=== PATIENT | female | born 1945 | race Caucasian/White ===

== ENCOUNTER 2021-09-12 16:18 | Observation (INO) | payer MEDICARE ==
[~2021-09-12] VITALS: Ht 160 cm; Wt 63.6 kg
[2021-09-12] MEDS ORDERED: HYDR-3911 PO (16:29)
[2021-09-12] MEDS ORDERED: AMLO10TA PO (16:29)
[2021-09-12] MEDS ORDERED: NORCO, ANEXSIA 5/325MG TABLET (HYDROcodone/ACETAMINOPHEN) PO ONE (18:05)
[2021-09-12] MEDS: HEPARIN SOD (PORCINE) 5000UNITS/ML 1ML VIAL/SYRINGE SC SCH (22:00)
[2021-09-12] MEDS ORDERED: LABE20TAB PO (22:15)
[2021-09-12] MEDS ORDERED: ROSU5TAB5 PO (22:15)
[2021-09-12] MEDS ORDERED: HOME MED LIST COMPLETE! XX SCH (22:20)
[2021-09-12 22:22] LABS: BASO % 0.3 % (0.0-1.0); EOS # 0.2 10^3/uL (0.0-0.5); EOS % 1.9 % (0.0-3.0); HEMATOCRIT 32.8 % (36.0-47.0); HEMOGLOBIN 10.6 g/dl (12.0-15.5); LYMPH # 1.1 10^3/uL (1.5-5.0); LYMPH % 13.6 % (24.0-44.0); MEAN CORPUSCULAR HGB CONC 32.3 g/dl (32.0-36.5); MEAN CORPUSCULAR VOLUME 89.9 fl (80.0-96.0); MONO # 0.5 10^3/uL (0.0-0.8); MONO % 6.8 % (2.0-8.0); PLATELET COUNT, AUTOMATED 117 10^3/uL (150-450); RED BLOOD COUNT 3.65 10^6/uL (4.00-5.40); WHITE BLOOD COUNT 7.8 10^3/uL (4.0-10.0)
[2021-09-12] MEDS ORDERED: MOM 30ML SUSPENSION UDC PO PRN (22:40)
[2021-09-12] MEDS ORDERED: MAALOX 30 ML SUSP *UDC PO PRN (22:40)
[2021-09-12] MEDS ORDERED: ACETAMINOPHEN TAB 650MG DOSE (2X325MG) PO PRN (22:40)
[2021-09-12] MEDS ORDERED: PILL CUTTER 1 EACH XX PRN (22:50)
[2021-09-12 22:58] LABS: CALCIUM LEVEL 9.6 MG/DL (8.8-10.2); CREATININE FOR GFR 1.74 MG/DL (0.55-1.30); GLOMERULAR FILTRATION RATE 30.4 (>39); POTASSIUM SERUM 4.4 MEQ/L (3.5-5.1)
[2021-09-12] MEDS: ROSUVASTATIN 10 MG TAB (CRESTOR) PO SCH (23:00)
[2021-09-12] MEDS: LABETALOL 200 MG TAB PO SCH (23:00)
[2021-09-12] MEDS: **hydrALAZINE HCL** 25 MG TAB PO SCH (23:00)
[2021-09-13] MEDS: NORCO, ANEXSIA 5/325MG TABLET (HYDROcodone/ACETAMINOPHEN) PO PRN ×5 (00:16→22:34)
[2021-09-13] MEDS: HEPARIN SOD (PORCINE) 5000UNITS/ML 1ML VIAL/SYRINGE SC SCH ×4 (05:48→21:50)
[2021-09-13 06:54] LABS: BASO % 0.3 % (0.0-1.0); EOS # 0.2 10^3/uL (0.0-0.5); EOS % 2.6 % (0.0-3.0); HEMATOCRIT 32.8 % (36.0-47.0); HEMOGLOBIN 10.5 g/dl (12.0-15.5); LYMPH # 0.9 10^3/uL (1.5-5.0); LYMPH % 15.7 % (24.0-44.0); MEAN CORPUSCULAR HEMOGLOBIN 29.2 pg (27.0-33.0); MEAN CORPUSCULAR VOLUME 91.4 fl (80.0-96.0); MONO # 0.5 10^3/uL (0.0-0.8); MONO % 9.4 % (2.0-8.0); NEUTROPHILS # 4.1 10^3/uL (1.5-8.5); NEUTROPHILS % 71.7 % (36.0-66.0); PLATELET COUNT, AUTOMATED 114 10^3/uL (150-450); RED BLOOD COUNT 3.59 10^6/uL (4.00-5.40); WHITE BLOOD COUNT 5.7 10^3/uL (4.0-10.0)
[2021-09-13 07:25] LABS: ALBUMIN 3.7 GM/DL (3.2-5.2); BILIRUBIN,TOTAL 0.5 MG/DL (0.2-1.0); CALCIUM LEVEL 9.3 MG/DL (8.8-10.2); CREATININE FOR GFR 1.56 MG/DL (0.55-1.30); GLOMERULAR FILTRATION RATE 34.5 (>39); MAGNESIUM LEVEL 2.1 MG/DL (1.8-2.4); POTASSIUM SERUM 4.1 MEQ/L (3.5-5.1); TOTAL PROTEIN 5.9 GM/DL (6.4-8.2)
[2021-09-13] MEDS: LABETALOL 200 MG TAB PO SCH ×2 (08:03→21:49)
[2021-09-13] MEDS: **hydrALAZINE HCL** 25 MG TAB PO SCH ×3 (08:04→21:49)
[2021-09-13 20:57] VITALS: BP 138/63
[2021-09-13] MEDS: ROSUVASTATIN 10 MG TAB (CRESTOR) PO SCH (21:50)
[2021-09-14] MEDS: NORCO, ANEXSIA 5/325MG TABLET (HYDROcodone/ACETAMINOPHEN) PO PRN ×2 (04:49→11:01)
[2021-09-14 04:50] VITALS: BP 133/62
[2021-09-14] MEDS: HEPARIN SOD (PORCINE) 5000UNITS/ML 1ML VIAL/SYRINGE SC SCH (07:02)
[2021-09-14 07:50] VITALS: BP 133/62
[2021-09-14] MEDS: LABETALOL 200 MG TAB PO SCH (07:50)
[2021-09-14] MEDS: **hydrALAZINE HCL** 25 MG TAB PO SCH (07:52)
[2021-09-14] MEDS ORDERED: HYDR-3715 PO (11:58)
== END 2021-09-14 13:40 | disposition home or self-care (01) ==
LOC: M ED 16:18 → M ED INP 16:19 → M 4MAIN 09-13 20:36
PROVIDERS: ADMIT Family Medicine; ATTEND Family Medicine
DX: S82.854A Nondisplaced trimalleolar fracture of right lower leg, initial encounter for closed fracture (principal); W01.0XXA Fall on same level from slipping, tripping and stumbling without subsequent striking against object, initial encounter; Y92.833 Campsite as the place of occurrence of the external cause; Y93.9 Activity, unspecified; Y99.9 Unspecified external cause status; I12.9 Hypertensive chronic kidney disease with stage 1 through stage 4 chronic kidney disease, or unspecified chronic kidney disease; N18.4 Chronic kidney disease, stage 4 (severe); Z79.899 Other long term (current) drug therapy; Z88.5 Allergy status to narcotic agent; Z88.8 Allergy status to other drugs, medicaments and biological substances
CPT/HCPCS: 36415; 73502; 73552; 73590; 73610; 73630; 73700; 80048; 80053; 83735; 85025; 87426; 96372; 97165; 97530; 99285; G0378; J1644